=== PATIENT | female | born 1950 | race Caucasian/White ===

== ENCOUNTER → 2017-05-25 | Outpatient (CLI) | payer MEDICARE ==
[~2017-05-25] MED LIST: BETA.05TC TOP; ESTRTP VAG; IBUP400; Prilosec Otc20 MG PO; VITAMIN D32000 UNI1 PO
[2017-05-27 12:54] LABS: HPV Genotype 16 Not Detected (NOTDET); HPV Genotype 18 Not Detected (NOTDET)
[2017-06-07 14:24] LABS: HPV High Risk Other Not Detected (NOTDET)
[2017-06-08 07:14] LABS: Source VAGINAL
== END | disposition home or self-care (01) ==
LOC: OLS 16:12
PROVIDERS: Nurse Practitioner Women's Health
DX: Z12.72 Encounter for screening for malignant neoplasm of vagina (principal); Z91.89 Other specified personal risk factors, not elsewhere classified
CPT/HCPCS: 87624; G0123

== ENCOUNTER → 2018-06-06 | Outpatient (CLI) | payer MEDICARE, OTHER ==
[2018-06-07 15:07] LABS: HPV 16 Negative (Negative); HPV 18 Negative (Negative); HPV OTHER HR TYPES Negative (Negative)
== END | disposition home or self-care (01) ==
LOC: LAB SHORT 12:35 → LAB 12:35
PROVIDERS: Nurse Practitioner Women's Health
DX: Z12.72 Encounter for screening for malignant neoplasm of vagina (principal)
CPT/HCPCS: 87624; G0123

== ENCOUNTER → 2019-06-14 | Outpatient (CLI) | payer MEDICARE, OTHER | END | disposition home or self-care (01) | LOC: PLD 14:14 → LAB SHORT 14:14 | DX: L30.8 Other specified dermatitis (principal) | CPT/HCPCS: 88305 ==

== ENCOUNTER → 2020-08-13 | Outpatient (CLI) | payer MEDICARE, OTHER | END | disposition home or self-care (01) | LOC: LAB SHORT 17:15 → LAB 17:15 | PROVIDERS: Nurse Practitioner Women's Health | DX: Z01.419 Encounter for gynecological examination (general) (routine) without abnormal findings (principal); Z12.72 Encounter for screening for malignant neoplasm of vagina | CPT/HCPCS: G0145 ==

== ENCOUNTER → 2020-10-07 | Outpatient (CLI) | payer MEDICARE, OTHER ==
[2020-10-07 15:35] LABS: BASOPHILS ABSOLUTE AUTO 0.02 K/mm3 (0.00-0.23); BASOPHILS PERCENT AUTO 1 % (0-2); EOSINOPHILS ABSOLUTE AUTO 0.12 K/mm3 (0.00-0.68); EOSINOPHILS PERCENT AUTO 3 % (0-6); Hematocrit 40.2 % (33.0-51.0); Hemoglobin 13.3 g/dL (11.5-16.0); IMMATURE GRAN ABSOLUTE AUTO 0.01 K/mm3 (0.00-0.10); IMMATURE GRAN PERCENT AUTO 0 % (0-1); LYMPHOCYTES ABSOLUTE AUTO 1.33 K/mm3 (0.84-5.20); LYMPHOCYTES PERCENT AUTO 32 % (21-46); MONOCYTES ABSOLUTE AUTO 0.35 K/mm3 (0.16-1.47); MONOCYTES PERCENT AUTO 9 % (4-13); Mean Corpuscular HGB 29.9 pg (26.0-34.0); Mean Corpuscular HGB Conc 33.1 g/dL (31.5-36.5); Mean Corpuscular Volume 90 fL (80-100); Mean Platelet Volume 10.3 fL (9.1-12.4); NEUTROPHILS ABSOLUTE AUTO 2.31 K/mm3 (1.96-9.15); NEUTROPHILS PERCENT AUTO 56 % (41-73); Platelet Count 288 K/mm3 (150-400); RDW Coefficient Variation 14.6 % (11.7-14.2); RDW Standard Deviation 48.5 fL (35.1-46.3); Red Blood Cell Count 4.45 M/mm3 (3.80-5.20); White Blood Cell Count 4.14 K/mm3 (4.00-11.30)
[2020-10-07 16:09] LABS: Anion Gap 6 mmol/L (6-16); Blood Urea Nitrogen 14 mg/dL (8-24); Bun/Creatinine Ratio 15.4 (12.0-20.0); CHOL/HDL RATIO 4.4; CO2, Blood 25 mmol/L (21-32); Calcium, Blood 9.2 mg/dL (8.5-10.1); Chloride, Blood 108 mmol/L (98-108); Cholesterol 225 mg/dL (50-200); Creatinine, Blood 0.91 mg/dL (0.40-1.00); Glomerular Filtration Rate >60 (60-); Glucose, Blood 107 mg/dL (70-99); HDL Cholesterol 51 mg/dL (>39); Low Density Lipoprotein Chol 152 mg/dL (0-110); Potassium, Blood 4.1 mmol/L (3.5-5.5); Sodium, Blood 139 mmol/L (136-145); Triglycerides 108 mg/dL (30-160); Very Low Density Lipoprot Chol 21 mg/dL (6-32)
== END | disposition home or self-care (01) ==
LOC: LAB SHORT 13:27 → LAB 13:27
PROVIDERS: Hospitalist
DX: D72.819 Decreased white blood cell count, unspecified (principal); E78.00 Pure hypercholesterolemia, unspecified
CPT/HCPCS: 80048; 80061; 85025

== ENCOUNTER → 2020-10-20 | Outpatient (CLI) | payer MEDICARE, OTHER | END | disposition home or self-care (01) | LOC: LAB SHORT 09:33 → LAB 09:33 | DX: R07.9 Chest pain, unspecified (principal) | CPT/HCPCS: 84484; 85379 ==

== ENCOUNTER 2024-04-09 07:40 | Day surgery (SDC) | payer OTHER ==
[~2024-04-09] VITALS: Ht 154.9 cm; Wt 72.8 kg
[2024-04-09] VITALS (13 sets, daily range): BP systolic 112–159; BP diastolic 55–97
[~2024-04-09 07:40] MED LIST changes: +ACET500 PO; +Acetaminophen 500 MG Tab PO SCH; -BETA.05TC TOP; +Betamethasone D15 G1 TOP; +Bupivacaine 0.5% HCl 5 MG/ML 30MLVIAL ONE; +Bupivacaine 0.5% Inj 10 ML Vial ONE; +CeFAZolin Sodium 2,000 MG in NS 100 ML IV SCH; +Chlorhexidine Mouth Care 15 ML UDC MT SCH; +Dexmedetomidine HCL 200 MCG / 2 ML ONE; -ESTRTP VAG; +Estrace Vagin42.5 GM VAG; +FISH OIL 1,0001 EA10 PO; +Lactated Ringer's 1,000 ML IV SCH; +MELO7.5 PO; +Midazolam HCl 1MG / ML 2ML Vial ONE; +OMEP20ER PO; +OxyCODONE HCL 10 MG TABCR PO SCH; +Phenylephrine HCl 100 MCG/ML-NS 10MLSYR (1MG/10ML) ONE; -Prilosec Otc20 MG PO; +RED YEAST RICE55 MG PO; +Ropivacaine 0.5% HCl/Pf 123.125 MG,EPINEPHrine HCL 0.25 MG,Ketorolac Tromethamine 15 MG... INFIL SCH; +Tranexamic Acid 100 ML IV SCH; +propofoL 100 ML IV ONE
[2024-04-09] MEDS ORDERED: FentaNYL Citrate 50 MCG/ML 2 ML Injection ONE (07:51)
[2024-04-09] MEDS ORDERED: Bisacodyl 10 MG Supp PR PRN (08:35)
[2024-04-09] MEDS ORDERED: DiphenhydrAMINE HCL 25 MG Cap PO PRN (08:35)
[2024-04-09] MEDS ORDERED: Lactated Ringer's 1,000 ML IV SCH (08:35)
[2024-04-09] MEDS ORDERED: FLU VACC TS2024-25(6MOS UP)/PF 45 MCG/0.5 ML SYRINGE IM SCH (08:35)
[2024-04-09] MEDS ORDERED: Ondansetron HCl 2 MG / ML 2ML Vial IV PRN (08:40)
[2024-04-09] MEDS ORDERED: HYDROmorphone HCl/Pf 1MG SYR IV PRN (08:40)
[2024-04-09] MEDS ORDERED: OxyCODONE HCL 5 MG TAB PO PRN ×2 (08:40)
[2024-04-09] MEDS ORDERED: Metoclopramide HCl 5MG / ML 2ML Vial IV PRN (08:40)
[2024-04-09] MEDS ORDERED: Magnesium Hydroxide Conc 10 ML UDC PO PRN (08:40)
[2024-04-09] MEDS ORDERED: Promethazine HCl 25 MG Tab PO PRN (08:45)
[2024-04-09] MEDS ORDERED: Docusate Sodium 100 MG Cap PO SCH (09:00)
[2024-04-09] MEDS ORDERED: Dexamethasone Sod Phos 10 MG/ML 1ML VIAL ONE (09:22)
[2024-04-09] MEDS ORDERED: Phenylephrine HCl 100 MCG/ML-NS 10MLSYR (1MG/10ML) ONE (09:22)
[2024-04-09] MEDS ORDERED: Ondansetron HCl 2 MG / ML 2ML Vial ONE (09:22)
[2024-04-09] MEDS ORDERED: Glycopyrrolate 0.2 MG/ML 5ML VIAL ONE (09:41)
[2024-04-09] MEDS ORDERED: Ketorolac Tromethamine 30mg Vial ONE (10:44)
[2024-04-09] MEDS ORDERED: Vasopressin 20 UNITS/ML 1ML Vial ONE (10:55)
--- NOTE | 2024-04-09 11:59 | NUR ---
POST OP NOTE PT TO ROOM 217 FROM PACU. PT IS AWAKE AND ALERT, VSS, PT DENIES PAIN OR NAUSEA. DRESSING C/D/I. JOSE D MCKOY, MARGARET IN PLACE. PT CAN WIGGLE TOES BUT REPORTS SOME NUMBNESS FROM SPINAL. 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
[2024-04-09] MEDS ORDERED: Ketorolac Tromethamine 15mg Vial IV SCH (12:00)
[2024-04-09] MEDS ORDERED: ASPI81CH PO (15:31)
[2024-04-09] MEDS ORDERED: OXYC5 PO (15:32)
[2024-04-09] MEDS ORDERED: Acetaminophen 500 MG Tab PO SCH (16:00)
[2024-04-09] MEDS ORDERED: CeFAZolin Sodium 2,000 MG in NS 100 ML IV SCH (17:00)
--- NOTE | 2024-04-09 17:07 | NUR ---
SHIFT SUMMARY PT IS PODO FOR R TKA. PT IS ALERT, RESPONSIVE, FOLLOWING COMMANDS BUT IS EASILY DISTRACTED AND TANGENTIAL. PT IS A 1 ASST W/ FWW AND GB, TOLERATING REG DIET AND PO FLUIDS, VOIDING. PAIN IS TOLERABLE. VSS. PAS, JOSE D MA, POLAR PACK ON. PT CURRENTLY RESTING IN RECLINER W/ LEGS ELEVATED. CAP REFILL IN R TOES 2 SECS, PT HAS FULL SENSATION BACK AFTER SPINAL. USING CALL LIGHT APPROPRIATELY.
[2024-04-10 00:06] VITALS: BP 131/75
--- NOTE | 2024-04-10 04:53 | NUR ---
SHIFT SUMMARY POD 1 S/P RIGHT TKA, AQUACEL DRESSING CDI. POLAR LESLIE TO RIGHT KNEE IN PLACE CECILY, ICE REPLACED PRN. PAIN MANAGED PER EMAR. PT PLEASANT AND COOPERATIVE WITH CARE. AMBULATING IN HALLWAY/ROOM WITH SBA, FWW, AND GB. CECILY PO INTAKE. IV ABX INFUSED PER ORDERS, IV SL NOW. CECILY PO INTAKE, DENIES N/V. PLAN FOR PT TO BE UP IN CHAIR FOR BREAKFAST, WORK WITH THERAPY, AND DC HOME. PT UP IN ROOM TALKING TO STAFF AT THIS TIME. DENIES NEEDS. HAS CALL LIGHT IN REACH. WILL GIVE REPORT ON COMING RN.
[2024-04-10 04:54] VITALS: BP 112/65
[2024-04-10 05:02] LABS: BASOPHILS ABSOLUTE AUTO 0.01 K/mm3 (0.00-0.23); BASOPHILS PERCENT AUTO 0 % (0-2); EOSINOPHILS PERCENT AUTO 0 % (0-6); Hematocrit 31.8 % (33.0-51.0); Hemoglobin 10.8 g/dL (11.5-16.0); IMMATURE GRAN ABSOLUTE AUTO 0.03 K/mm3 (0.00-0.10); IMMATURE GRAN PERCENT AUTO 0 % (0-1); LYMPHOCYTES ABSOLUTE AUTO 0.75 K/mm3 (0.84-5.20); LYMPHOCYTES PERCENT AUTO 7 % (21-46); MONOCYTES ABSOLUTE AUTO 0.97 K/mm3 (0.16-1.47); MONOCYTES PERCENT AUTO 9 % (4-13); Mean Corpuscular HGB 30.7 pg (26.0-34.0); Mean Corpuscular Volume 90 fL (80-100); Mean Platelet Volume 9.9 fL (9.1-12.4); NEUTROPHILS PERCENT AUTO 85 % (41-73); Platelet Count 237 K/mm3 (150-400); RDW Standard Deviation 46.2 fL (35.1-46.3); Red Blood Cell Count 3.52 M/mm3 (3.80-5.20); White Blood Cell Count 11.36 K/mm3 (4.00-11.30)
[2024-04-10 05:46] LABS: Calcium, Blood 8.6 mg/dL (8.5-10.1); Creatinine, Blood 0.92 mg/dL (0.40-1.00); Potassium, Blood 3.9 mmol/L (3.5-5.5)
[2024-04-10] MEDS ORDERED: Omeprazole 20 MG CapCR PO SCH (06:00)
[2024-04-10 07:29] VITALS: BP 116/65
[2024-04-10] MEDS ORDERED: Aspirin 81 MG Chew PO SCH (09:00)
[2024-04-10 11:04] VITALS: BP 139/72
--- NOTE | 2024-04-10 11:06 | NUR ---
DISCHARGE NOTE PT IS ALERT AND RESPONSIVE, FOLLOWING COMMANDS. TOLERATING REG DIET, PO FLUIDS, VOIDING, PAIN IS TOLERABLE W/ PAIN MEDS PER EMAR. PT MEDICATED FOR NAUSEA AND IS CURRENTLY FEELING BETTER, ADVISED TO NOT TAKE OXY ON EMPTY STOMACH. REVIEWED DC INSTUCTIONS W/ PT, COPY GIVEN. VSS. DRESSING C/D/I, DRESSING CHANGES GIVEN. CAP REFILL IN R TOES 2 SECS, DENIES N/T TO BLE. PT DC'D VIA WC TO PRIVATE RIDE HOME IN STABLE CONDITION W/ BELONGINGS.
[2024-04-12] MEDS ORDERED: Estradiol Vag Cream 0.1 MG/G 42.5 GM Tube VAG SCH (21:00)
[2024-04-12] MEDS ORDERED: Betamethasone Dip 0.05% Cream 15 gm TOP SCH (21:00)
== END 2024-04-10 11:13 | disposition home or self-care (01) ==
LOC: ORSCMMR 07:40 → ORD 08:30 → SURS 11:42 → ORSCMMR 04-10 11:13
PROVIDERS: Orthopaedic Surgery
PROC: 0SRC0JA Replacement of Right Knee Joint with Synthetic Substitute, Uncemented, Open Approach (ICD-10-PCS; principal; 2024-04-09 08:30)
DX: M17.11 Unilateral primary osteoarthritis, right knee (principal); E11.9 Type 2 diabetes mellitus without complications; K21.9 Gastro-esophageal reflux disease without esophagitis; Z79.899 Other long term (current) drug therapy
CPT/HCPCS: 36415; 73560-RT; 80048; 83735; 85025; 97110; 97112; 97116; 97161; 97530; A9270; C1713; C1776; C1887; J0171; J0690; J0735; J1100; J1885; J2250; J2371; J2405; J2704; J2795; J3010; J7120

== ENCOUNTER → 2024-10-02 | Outpatient (CLI) | payer OTHER ==
[~2024-10-02] MED LIST changes: +ASPI81CH PO; -Acetaminophen 500 MG Tab PO SCH; -Bupivacaine 0.5% HCl 5 MG/ML 30MLVIAL ONE; -Bupivacaine 0.5% Inj 10 ML Vial ONE; -CeFAZolin Sodium 2,000 MG in NS 100 ML IV SCH; -Chlorhexidine Mouth Care 15 ML UDC MT SCH; -Dexmedetomidine HCL 200 MCG / 2 ML ONE; -Lactated Ringer's 1,000 ML IV SCH; -Midazolam HCl 1MG / ML 2ML Vial ONE; +OXYC5 PO; -OxyCODONE HCL 10 MG TABCR PO SCH; -Phenylephrine HCl 100 MCG/ML-NS 10MLSYR (1MG/10ML) ONE; -Ropivacaine 0.5% HCl/Pf 123.125 MG,EPINEPHrine HCL 0.25 MG,Ketorolac Tromethamine 15 MG... INFIL SCH; -Tranexamic Acid 100 ML IV SCH; -propofoL 100 ML IV ONE
== END ==
LOC: LAB SHORT 10:29 → LAB 10:29
PROVIDERS: Obstetrics & Gynecology
DX: Z91.89 Other specified personal risk factors, not elsewhere classified (principal)
CPT/HCPCS: G0123; G0145